=== PATIENT | female | born 1980 ===

== ENCOUNTER → 2021-11-27 | Outpatient (CLI) | payer OTHER ==
--- NOTE | 2021-11-27 16:22 | CONS ---
CONSULTATION DATE OF SERVICE: 11/27/2021 This 41-year-old lady has [facility] for obstructive sleep apnea- hypopnea syndrome. HISTORY OF PRESENT ILLNESS/SLEEP-WAKE EVALUATION: This patient was diagnosed with obstructive sleep apnea in [place] in 2017. Since then she has been on treatment with CPAP. I reviewed the results of her sleep studies, which showed apnea-hypopnea index 4.7, which is in normal range by today's criteria. RDI increased to 30.8, but RDI is not considered to be an indication for treatment, again by today's criteria. Patient's sleep schedule is from 9 p.m. to 5:50 a.m. on weekdays and from 10:30 p.m. to 6:45 a.m. on weekends. She sometimes has problems with falling asleep, although no TV in bedroom. She sleeps on the back and side positions. While using her CPAP, she wakes up from sleep up to 4 times with one episode of nocturia. I checked her CPAP unit. Range of the pressure is 6 to 8, average pressure 8 cm of water, usage nights for more than 4 hours. Average usage 5.2 hours per night. Mask fitting 100%. Apnea-hypopnea index reading from the machine 6.3. Periodic breathing 0%. [place] Sleepiness Scale increased to 12 while she was using her CPAP, and she feels tiredness and sleepiness during the day and episodes of anxiety. PAST MEDICAL HISTORY: Positive for allergies, sinus problems. PAST SURGICAL HISTORY: Hysterectomy and kidney surgery. MEDICATIONS: Trulicity, duloxetine. PHYSICAL EXAMINATION: GENERAL APPEARANCE: Pleasant 41-year-old lady without distress. VITAL SIGNS: BP 107/70, HR 72, RR 14, height 5 feet 4 inches, weight 200 pounds, body mass index 34.4, temperature 97.4, oxygen saturation at room air 97%. HEENT: PERRLA, EOMI, evaluation of oropharynx showed tongue protrudes midline. Extremely low position of soft palate; Mallampati IV. NECK: Supple, no JVD. Thyroid is not palpable. Neck is wide; 17 inches in circumference. LUNGS: Clear to percussion and to auscultation. Good air exchange. No wheezing or rhonchi. HEART: S1, S2 regular. No murmurs, gallops, or rubs. ABDOMEN: Slightly obese. EXTREMITIES: No clubbing or cyanosis. ROSE GRADER: Awake, alert, and oriented X3. Cranial nerves 2 to 7 intact. There is no fasciculation or atrophy. noted. No focal deficits observed. IMPRESSION: 1. Snoring, multiple awakenings from sleep, extremely low position of soft palate, Mallampati IV, wide neck, 17 inches in circumference; obstructive sleep apnea- hypopnea syndrome. 2. Allergies. 3. Sinus problems. 4. Status post hysterectomy. 5. Status post kidney surgery. PLAN: 1. Polysomnography for evaluation of patient's breathing during sleep. Previous sleep study results showed apnea-hypopnea index 4.7, which is in normal range. 2. CPAP titration for correction of respiratory abnormalities during sleep. The patient never had CPAP titration before. 3. Patient needs to get new CPAP equipment. Her CPAP unit is a Dream Station from [employer], which is on recall. 4. No driving if feeling sleepiness. 5. Losing weight. 6. Sleep hygiene with regular time in bed for at least 8 hours. Thank you very much for referring this patient for consultation. Sincerely, Yang Velez MD, PhD, FAASM Diplomat of [employer] [employer] Sleep Medicine [employer] of [place] [employer] [facility] [place] MMODL / MAGGIEN: [id number] /
== END ==
LOC: SLEEP 13:00
PROVIDERS: ATTEND Internal Medicine
DX: G47.33 Obstructive sleep apnea (adult) (pediatric) (principal); T78.40XA Allergy, unspecified, initial encounter; J34.9 Unspecified disorder of nose and nasal sinuses; Z90.711 Acquired absence of uterus with remaining cervical stump; Z98.890 Other specified postprocedural states; Z99.89 Dependence on other enabling machines and devices
CPT/HCPCS: 99202